=== PATIENT | female | born 1985 | race Caucasian/White ===

== ENCOUNTER 2018-08-13 07:22 | Day surgery (SDC) | payer BC ==
[~2018-08-13 07:22] MED LIST: Bupivacaine 0.5% 50 ML MDV ONE; Lidocaine 1% with EPINEPHrine 1:100,000 50 ML MDV ONE; Midazolam 1 MG/ML 2 ML SDV ONE; Propofol 200 MG/20 ML SDV ONE; fentaNYL 100 MCG/2 ML SDV ONE
[2018-08-13] MEDS ORDERED: ceFAZolin 2 GM in Premix Bag 1 BAG IV ONE (08:00)
[2018-08-13] MEDS ORDERED: Dextrose 5%-Lactated Ringers 1,000 ML IV SCH (08:00)
[2018-08-13] MEDS ORDERED: Acetaminophen 500 MG Tab PO ONE (08:00)
[2018-08-13] MEDS ORDERED: fentaNYL 250 MCG/5 ML SDV ONE (09:32)
[2018-08-13] MEDS ORDERED: Neostigmine Methylsulfate 1 MG/ML 5 ML Syringe ONE (09:36)
[2018-08-13] MEDS ORDERED: Glycopyrrolate 0.2 MG/ML 5 ML MDV ONE (09:36)
[2018-08-13] MEDS ORDERED: Dexamethasone 4 MG/ML SDV ONE (09:36)
[2018-08-13] MEDS ORDERED: Rocuronium 50 MG/5 ML Vial ONE (09:36)
[2018-08-13] MEDS ORDERED: Ondansetron 4 MG/2 ML SDV ONE (09:36)
[2018-08-13] MEDS ORDERED: Propofol 200 MG/20 ML SDV ONE (09:36)
[2018-08-13] MEDS ORDERED: Bupivacaine 0.5%/EPINEPHrine 1:200,000 50 ML MDV ONE (09:38)
[2018-08-13] MEDS ORDERED: Naloxone 0.4 MG/ML SDV ONE (10:36)
[2018-08-13] MEDS ORDERED: Acetaminophen/HYDROcodone 325-5 MG Tab PO ONE (11:42)
[2018-08-13 12:56] VITALS: BP 110/58
[2018-08-16 09:10] LABS: ANTI-CENTROMERE B ANTIBODIES <0.2 AI (0.0-0.9); ANTI-DNA (DS) AB QN 10 IU/mL (0-9); ANTI-JO-1 <0.2 AI (0.0-0.9); ANTICHROMATIN ANTIBODIES 0.2 AI (0.0-0.9); ANTIRIBOSOMAL P ANTIBODIES <0.2 AI (0.0-0.9); ANTISCLERODERMA-70 ANTIBODIES 0.2 AI (0.0-0.9); SJOGREN'S ANTI-SS-A <0.2 AI (0.0-0.9); SJOGREN'S ANTI-SS-B <0.2 AI (0.0-0.9); SMITH ANTIBODIES <0.2 AI (0.0-0.9); SMITH/RNP ANTIBODIES <0.2 AI (0.0-0.9)
[2018-08-22 13:13] LABS: RHEUMATOID FACTOR LEVELS IGG* 8.7 EU/ml (.); RHEUMATOID FACTOR LEVELS IGM* 30.1 IU/ml (.)
--- NOTE | 2018-08-27 10:51 | OR ---
DATE OF PROCEDURE: 08/13/2018 PREOPERATIVE DIAGNOSIS: Rule out polymyositis. POSTOPERATIVE DIAGNOSIS: Rule out polymyositis. PROCEDURES: 1. Left deltoid muscle biopsy (). 2. Left vastus lateralis muscle biopsy (). ANESTHESIA: General. INDICATION FOR PROCEDURE: This is a 32-year-old, presenting recently with some muscular discomfort and elevated CK among other things and it was felt to be possibly associated with polymyositis. Both the clinical exam and EMG failed to show any obvious focal abnormalities, and an MRI of both the shoulder areas as well as hips and thighs likewise did not show any areas of obvious inflammation. Given this, the situation was discussed with the pathologist as well as review of the biopsy guidelines in this setting, and it was felt that 2 separate biopsies would be most appropriate, so as to maximize the sensitivity of the procedure, and we will proceed with a biopsy of the left deltoid and left vastus lateralis muscles. Potential risks of the procedure including bleeding, infection, possibility of misdiagnosis due to sampling were all reviewed with the patient, and she wishes to proceed. DETAILS OF PROCEDURE: The patient was taken to the operating room, and after general endotracheal anesthesia was induced, the areas around the left deltoid and vastus lateralis muscles were both prepped and draped. The initial incision was made over the deltoid on the lateral aspect of the shoulder, carried down through the skin and subcutaneous tissue, down to the level of the fascia. The fascia was then divided and retracted somewhat. A 3-4 cm x 1-2 cm length of muscle was then excised using sharp dissection to avoid cautery artifact, and that specimen delivered to the medical pathology teacher for quick freezing. The fascia overlying this was then closed after hemostasis had been obtained with electrocautery. The fascia then closed with 3-0 Vicryl stitch as was the subdermal tissue, and the skin then closed with a 5-0 Prolene skin stitch. That area was anesthetized with 0.5% Marcaine. Following this, then an additional incision was made over the mid thigh and carried down through the skin and subcutaneous tissue, and down to the level of the fascia of the vastus lateralis muscle. This fascia was also incised and a portion of muscle of the same size as the deltoid was removed, and then also delivered for quick freezing to the pathology department. Hemostasis was likewise obtained here and that incision then closed with 3-0 Vicryl stitch at the fascia level, two layers of 3-0 Vicryl stitch deep, and a 5-0 Prolene skin stitch. Dressings were applied. The patient was taken to the recovery room in satisfactory condition and the patient tolerated the procedure well. Diego Carrion MD /[id number]
== END 2018-08-13 12:10 | disposition home or self-care (01) ==
LOC: JP.SDS 07:22
PROVIDERS: ATTEND Surgery
DX: M62.522 Muscle wasting and atrophy, not elsewhere classified, left upper arm (principal); E78.00 Pure hypercholesterolemia, unspecified
CPT/HCPCS: 20205; 36415; 80053; 81025; 82550; 83516; 83615; 85027; 85651; 86038; 86225; 86235; 86431; A9270; J0690; J1100; J2020; J2250; J2310; J2405; J2704; J2710; J3010; J3490; J7042

== ENCOUNTER 2023-04-06 07:13 | Day surgery (SDC) | payer OTHER, BC ==
[~2023-04-06 07:13] MED LIST changes: -Bupivacaine 0.5% 50 ML MDV ONE; -Lidocaine 1% with EPINEPHrine 1:100,000 50 ML MDV ONE; -fentaNYL 100 MCG/2 ML SDV ONE; +fentaNYL 50 MCG/ML SDV ONE
[2023-04-06] MEDS: Dextrose 5%-Lactated Ringers 1,000 ML IV SCH (08:22)
[2023-04-06] MEDS ORDERED: Propofol 200 MG/20 ML SDV ONE (09:36)
[2023-04-06 10:59] VITALS: BP 104/61; PULSE 75
== END 2023-04-06 11:18 | disposition home or self-care (01) ==
LOC: JP.SDS 07:13
PROVIDERS: ATTEND Surgery
DX: Z12.11 Encounter for screening for malignant neoplasm of colon (principal); I25.10 Atherosclerotic heart disease of native coronary artery without angina pectoris; E66.9 Obesity, unspecified; E06.3 Autoimmune thyroiditis; Z68.36 Body mass index [BMI] 36.0-36.9, adult; Z79.899 Other long term (current) drug therapy; Z80.0 Family history of malignant neoplasm of digestive organs; Z91.040 Latex allergy status; Z88.2 Allergy status to sulfonamides; Z88.5 Allergy status to narcotic agent; Z88.8 Allergy status to other drugs, medicaments and biological substances
CPT/HCPCS: 45378; 81025; J2250; J2704; J3010; J7121

== ENCOUNTER 2023-04-15 18:42 | Emergency (ER) | payer OTHER, BC ==
[2023-04-15 20:12] VITALS: BP 125/66; PULSE 92
[2023-04-15 20:53] LABS: APPEARANCE,URINE SLIGHTLY CLOUDY (CLEAR); BILIRUBIN,URINE NEGATIVE (NEGATIVE); COLOR,URINE YELLOW (YELLOW); GLUCOSE,URINE NEGATIVE (NEGATIVE); KETONES,URINE NEGATIVE (NEGATIVE); LEUKOCYTE ESTERASE,URINE NEGATIVE (NEGATIVE); NITRITE,URINE NEGATIVE (NEGATIVE); OCCULT BLOOD,URINE TRACE-INTACT (NEGATIVE); PH,URINE 5.5 (5.0-8.0); PROTEIN,URINE NEGATIVE (NEGATIVE); UROBILINOGEN,URINE 0.2 EU/dL (0.2-1.0)
[2023-04-15] MEDS ORDERED: Ondansetron 4 MG Tab.DIS PO ONE (20:58)
[2023-04-15] MEDS ORDERED: Ketorolac 30 MG/ML SDV IM ONE (20:58)
[2023-04-15 21:01] LABS: AMORPHOUS SEDIMENT,URINE NOT SEEN; BACTERIA,URINE MODERATE; EPITHELIAL CELLS,URINE FEW; MUCUS,URINE RARE; RBC,URINE 0-5 (0-5); WBC,URINE 0-5 (0-5)
== END 2023-04-15 23:30 | disposition home or self-care (01) ==
LOC: JP.ED 18:42
DX: M54.50 Low back pain, unspecified (principal); R10.9 Unspecified abdominal pain; E78.00 Pure hypercholesterolemia, unspecified; E66.9 Obesity, unspecified; Z68.38 Body mass index [BMI] 38.0-38.9, adult; Z88.8 Allergy status to other drugs, medicaments and biological substances; Z88.2 Allergy status to sulfonamides; Z91.040 Latex allergy status; Z79.899 Other long term (current) drug therapy
CPT/HCPCS: 74176; 81001; 81025; 96372; 99284; J1885; Q0162

== ENCOUNTER 2024-10-09 03:20 | Emergency (ER) | payer OTHER, BC ==
[2024-10-09 03:41] VITALS: BP 129/87; PULSE 75
[2024-10-09] MEDS: Ketorolac 30 MG/ML SDV IM ONE (04:07)
== END 2024-10-09 04:36 | disposition home or self-care (01) ==
LOC: JP.ED 03:20
DX: M33.20 Polymyositis, organ involvement unspecified (principal); E66.9 Obesity, unspecified; Z68.34 Body mass index [BMI] 34.0-34.9, adult; Z90.49 Acquired absence of other specified parts of digestive tract; Z90.710 Acquired absence of both cervix and uterus; Z88.2 Allergy status to sulfonamides; Z88.8 Allergy status to other drugs, medicaments and biological substances; Z91.040 Latex allergy status; Z79.899 Other long term (current) drug therapy
CPT/HCPCS: 96372; 99283; J1885